=== PATIENT | female | born 1980 | race Hispanic/Latino ===

== ENCOUNTER 2019-10-26 15:19 | Emergency (ER) | payer OTHER, SELFPAY ==
[2019-10-26] MEDS ORDERED: KETOROLAC TROMETHAMINE 60 MG/2 ML VIAL ONE (16:41)
[2019-10-26] MEDS ORDERED: LIDOCAINE 5% TOPICAL PATCH TP ONE (16:41)
[2019-10-26] MEDS ORDERED: DIAZEPAM 5 MG TABLET ONE (16:42)
== END 2019-10-26 18:08 | disposition home or self-care (01) ==
LOC: EDH 15:19
DX: M54.16 Radiculopathy, lumbar region (principal); Z98.890 Other specified postprocedural states
CPT/HCPCS: 96372; 99283; J1885